=== PATIENT | female | born 1995 | race Caucasian/White ===

== ENCOUNTER 2020-04-12 16:36 | Emergency (ER) | payer OTHER ==
--- NOTE | 2020-04-12 18:33 | ER Document Report ---
ED Wound - General Chief Complaint: Laceration Stated Complaint: LACERATION Time Seen by Provider: 04/12/20 17:55 Primary Care Provider: ERINN ARIZMENDI DO [NO LOCAL MD] - Follow up as needed Mode of Arrival: Ambulatory Information source: Patient Notes: 24-year-old female with no previous medical problems presents to the emergency room with a laceration to her left elbow that she states sustained around 1 AM this morning. Patient states she was coming down the stairs when she slipped in a glass of wine that she was carrying broke and she cut her left elbow. Bl eeding is controlled. Tetanus is up-to-date. Patient is right-handed. TRAVEL OUTSIDE OF THE [place] IN LAST 30 DAYS: No - Related Data Home Medications: trinessa Past Medical History - General Information source: Patient - Social History Smoking Status: Former Smoker Frequency of alcohol use: Occasional Drug Abuse: None Family History: Reviewed & Not Pertinent Patient has homicidal ideation: No Review of Systems - Review of Systems Constitutional: No symptoms reported Cardiovascular: No symptoms reported Respiratory: No symptoms reported Gastrointestinal: No symptoms reported Musculoskeletal: Muscle pain Skin: Other - Laceration left elbow Neurological/Psychological: No symptoms reported -: Yes All other systems reviewed and negative Physical Exam - Vital signs Vitals: Temp Pulse Resp BP Pulse Ox 98.0 F 82 20 158/86 H 100 04/12/20 16:45 04/12/20 16:45 04/12/20 16:45 04/12/20 16:45 04/12/20 16:45 - General General appearance: Appears well, Alert In distress: Mild - Respiratory Respiratory status: No respiratory distress Chest status: Nontender Breath sounds: Normal Chest palpation: Normal - Cardiovascular Rhythm: Regular Heart sounds: Normal auscultation Murmur: No - Extremities General lower extremity: Normal inspection Shoulder: Normal Elbow: Nontender, Laceration - There is 1/2 cm laceration noted to the left elbow with bleeding controlled.. 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 Capillary refill less than 3 seconds. Neurovascularly intact. - Skin Skin Temperature: Warm Skin Moisture: Dry Skin Color: Normal Skin irregularity: Laceration Location of irregularity: Extremities Character of irregularity: Linear Irregularity with: negative: Swelling, Tenderness, Warmth Course - Re-evaluation Re-evalutation: 04/12/20 18:29 Laceration more than 12 hours old to left elbow. No active bleeding noted. No suturing required. Wound cleansed and Steri-Strips applied by nursing staff as documented. Patient was counseled on proper wound care. patient was given strict return to the emergency room guidelines. Return for any new or worsening symptoms. All questions were answered. Patient verbalized understanding and agrees with plan of care. 04/12/20 21:47 - Vital Signs Vital signs: Temp Pulse Resp BP Pulse Ox 98.3 F 68 15 114/74 100 04/12/20 19:06 04/12/20 19:06 04/12/20 19:06 04/12/20 19:06 04/12/20 19:06 Discharge - Discharge Clinical Impression: Laceration of left elbow without complication Qualifiers: Encounter type: initial encounter Qualified Code(s): S51.012A - Laceration without foreign body of left elbow, initial encounter Condition: Stable Disposition: HOME, SELF-CARE Instructions: Non-Sutured Laceration ([facility]), Care of Steri-Strip Closure ([facility]) Additional Instructions: Keep Steri-Strips clean and dry. Steri-Strips will fall off in 7 to 10 days. Can take Tylenol and or Motrin as needed for pain. Return to the emergency room for any new or worsening symptoms. Referrals: ERINN ARIZMENDI DO [NO LOCAL MD] - Follow up as needed
[2020-04-12 19:08] VITALS: BP 114/74
== END 2020-04-12 19:06 | disposition home or self-care (01) ==
LOC: ER 16:36
DX: S51.012A Laceration without foreign body of left elbow, initial encounter (principal); W01.0XXA Fall on same level from slipping, tripping and stumbling without subsequent striking against object, initial encounter; Z87.891 Personal history of nicotine dependence; Z79.899 Other long term (current) drug therapy; M79.10 Myalgia, unspecified site
CPT/HCPCS: 99282